=== PATIENT | female | born 1935 | race Caucasian/White ===

== ENCOUNTER 2017-10-19 14:38 | Inpatient (IN) | payer OTHER, BC ==
[~2017-10-19] VITALS: Ht 149.9 cm; Wt 80.4 kg
[2017-10-19 15:39] LABS: HEMATOCRIT 40.1 % (36.0-46.0); HEMOGLOBIN 13.4 G/DL (11.9-15.5); MCH 29.4 PG (29.0-34.0); MCHC 33.4 G/DL (30.0-36.0); MCV 87.9 FL (83-99); PLATELET COUNT 251 K/uL (156-360); RBC DIS.WIDTH-CV 13.7 % (11.8-14.6); RBC DIS.WIDTH-SD 43.9 % (39-53); RED BLOOD COUNT 4.56 M/uL (3.80-5.20); WHITE BLOOD COUNT 6.7 K/uL (4.1-10.2)
[2017-10-19 15:51] LABS: CHLORIDE 108 mEq/L (99-109); POTASSIUM 4.1 mEq/L (3.7-5.4); SODIUM 141 mEq/L (136-147)
[2017-10-19 15:53] LABS: GLUCOSE 201 mg/dL (70-99)
[2017-10-19 15:57] LABS: GFR ESTIMATE (CALCULATED) 57 mL/min/; UREA NITROGEN (BUN) 17 mg/dL (9-23)
[2017-10-19 16:05] LABS: TROP-I INTERPRETATION NEGATIVE
[2017-10-19] MEDS ORDERED: LEVOTHYROXINE50 MCG PO (17:21)
[2017-10-19] MEDS ORDERED: JANUMET 50/51 TABLET PO (17:21)
[2017-10-19 20:15] VITALS: BP 123/90
[2017-10-19 23:20] LABS: TROP-I INTERPRETATION INDETERMINATE; TROPONIN-I 0.42 ng/mL (0.0-0.30)
[2017-10-19 23:21] LABS: CK-MB 1.9 ng/mL (0.0-4.9)
[2017-10-19 23:54] LABS: CKMB RELATIVE INDEX 5.8 (0.0-3.9); CREATINE KINASE 33 IU/L (1-294); TOTAL CK 33 IU/L (1-294)
[2017-10-20] VITALS (7 sets, daily range): BP systolic 100–128; BP diastolic 55–79
[2017-10-20 06:08] LABS: CREATINE KINASE 30 IU/L (1-294); TOTAL CK 30 IU/L (1-294); TROP-I INTERPRETATION INDETERMINATE; TROPONIN-I 0.44 ng/mL (0.0-0.30)
[2017-10-20 06:32] LABS: CK-MB 1.9 ng/mL (0.0-4.9)
[2017-10-20 06:33] LABS: CKMB RELATIVE INDEX 6.3 (0.0-3.9)
[2017-10-21 04:28] VITALS: BP 116/58
[2017-10-21 04:54] LABS: CHLORIDE 104 mEq/L (99-109); POTASSIUM 4.6 mEq/L (3.7-5.4); SODIUM 139 mEq/L (136-147)
[2017-10-21 04:56] LABS: GLUCOSE 167 mg/dL (70-99)
[2017-10-21 04:59] LABS: CREATININE 1.1 mg/dL (0.6-1.3); GFR ESTIMATE (CALCULATED) 51 mL/min/
[2017-10-21 05:09] LABS: UREA NITROGEN (BUN) 26 mg/dL (9-23)
[2017-10-21 07:10] VITALS: BP 127/60
[2017-10-21 08:43] LABS: THYROTROPIN (TSH) 6.1 MIU/L (0.4-5.5)
[2017-10-21 11:12] VITALS: BP 143/63
[2017-10-21 12:46] LABS: HEMOGLOBIN A1c (GLYCOHEMOGLOB) 7.3 % (Below 5.7)
[2017-10-21 14:33] VITALS: BP 112/58
[2017-10-21] MEDS ORDERED: LASIX20 MG PO (16:52)
[2017-10-21] MEDS ORDERED: LISINOPRIL2.5 MG PO ×2 (16:52)
[2017-10-21] MEDS ORDERED: K-DUR20 MEQ PO (16:52)
[2017-10-21] MEDS ORDERED: KLOR-CON M2020 MEQ PO (16:52)
[2017-10-21] MEDS ORDERED: METOPROLOL SUCC25 MG PO (16:52)
[2017-10-21] MEDS ORDERED: FUROSEMIDE20 MG PO (16:52)
== END 2017-10-21 17:32 | disposition home health service (06) | DRG 293 ==
LOC: EME 14:38 → EDOF 17:55 → 4EAST 17:55 → ENRESERV 18:29 → 4EAST 20:16 → ENPENDDIS 10-21 → 4EAST 10-21 17:32
PROVIDERS: Internal Medicine
DX: I11.0 Hypertensive heart disease with heart failure (principal); I50.21 Acute systolic (congestive) heart failure; E66.9 Obesity, unspecified; I25.2 Old myocardial infarction; M19.90 Unspecified osteoarthritis, unspecified site; E11.9 Type 2 diabetes mellitus without complications; E03.9 Hypothyroidism, unspecified; R09.02 Hypoxemia; Z68.35 Body mass index [BMI] 35.0-35.9, adult
CPT/HCPCS: 80048; 82550; 82550 91; 82553; 82948; 83036; 83880; 84439; 84443; 84484; 85027; 93005; 93306; 94799; 99281; 99285; J1940